=== PATIENT | female | born 1985 | race Caucasian/White ===

== ENCOUNTER 2018-05-22 15:48 | Inpatient (IN) | payer OTHER ==
[2018-05-22 16:27] LABS: Bilirubin Negative (Negative); Blood, Urine Negative (Negative); Clarity Clear (Clear); Glucose, Urine (Dipstick) Negative (Negative); Leukocyte Trace (Negative); Nitrite Negative (Negative); Protein, Urine (Dipstick) Negative (Neg-Trace); Specific Gravity, Urine 1.015 (1.005-1.030); Urobilinogen 0.2 mg/dL (0.2-1.0); pH, Urine 6.5 (5.0-9.0)
[2018-05-22 16:30] LABS: Pregu Control Background? CLEAR/WHITE (CLR/WHITE); Pregu Control Bar Appear? YES (CONTROL BAR)
[2018-05-22 16:31] LABS: Bacteria/HPF 1+ HPF (None Seen); RBC/HPF 0-3 HPF (0-3); WBC/HPF 0-3 HPF (0-3)
[2018-05-22 16:32] LABS: Pregnancy Test - Urine (BHCG) Negative (Negative); Specific Gravity 1.015 (1.002-1.036)
[2018-05-22] MEDS ORDERED: Ondansetron HCl/PF 4 MG/2 ML Vial ONE (16:32)
[2018-05-22] MEDS ORDERED: Morphine 4 MG/ML VIAL ONE (16:49)
[2018-05-22 17:11] LABS: #Basophils 0.1 thou/uL (0.0-0.2); #Lymphocytes 2.9 thou/uL (1.20-3.40); #Monocytes 0.5 thou/uL (0.11-0.59); #Neutrophils 6.7 thou/uL (1.40-6.50); %Basophils 0.9 % (0.0-1.0); %Eosinophils 0.4 % (0.0-10.0); %Lymphocytes 28.3 % (21.0-51.0); %Neutrophils 65.4 % (42.0-75.0); Hemoglobin 13.1 g/dL (12.0-16.0); Mean Corpuscular HGB CONC 34.7 g/dL (32.0-36.0); Mean Corpuscular Hemoglobin 30.3 pg (27.0-31.0); Mean Corpuscular Volume 87.3 fL (78.0-98.0); Mean Platelet Volume 7.3 fL (7.4-10.4); Platelet Count 212 thou/uL (130-400); RBC Distribution Width 10.5 % (11.5-14.5); Red Blood Cell (RBC) Count 4.32 mill/uL (4.20-5.40); White Blood Cell (WBC) Count 10.3 thou/uL (4.8-10.8)
--- NOTE | 2018-05-22 17:11 | ULT ---
RIGHT UPPER QUADRANT ULTRASOUND: HISTORY: Right upper quadrant pain. The patient had an ultrasound of the leg, which showed gallstones. The p atient has increased pain today. FINDINGS: The left lobe of the liver, the pancreas, and the common bile duct are not visualized. The right lob e of the liver and right kidney appear normal. There are multiple gallstones with gallbladder wall t hickening (4.1 mm). No pericholecystic fluid is seen. One of the calculi in the gallbladder is in t he neck and shows normal no mobility. The other calculi demonstrate mobility. No free fluid is seen in the Dill pouch. IMPRESSION: Cholelithiasis with gallbladder wall thickening. Impacted gallstone is seen at the neck of the gallb ladder. POS: [facility]
[2018-05-22] MEDS ORDERED: Fentanyl 100 MCG/2 ML VIAL ONE ×3 (17:18→22:00)
[2018-05-22 17:23] LABS: ALT (SGPT) 21 U/L (8-55); AST (SGOT) 18 U/L (5-34); Alkaline Phosphatase 57 U/L (40-150); Anion Gap 10 mmol/L (10-20); BUN (Urea Nitrogen) 7 mg/dL (7.0-18.7); Bilirubin, Total 0.7 mg/dL (0.2-1.2); Calc. Creatinine Clearance 0 mL/min (70-130); Calcium 8.9 mg/dL (7.8-10.44); Carbon Dioxide 25 mmol/L (22-29); Chloride 108 mmol/L (98-107); Estimated GFR-MDRD Greater than 90; Globulin 2.8 g/dL (2.4-3.5); Glucose 109 mg/dL (70-105); Lipase 33 U/L (8-78); Potassium 3.2 mmol/L (3.5-5.1); Protein, Total 6.8 g/dL (6.0-8.3); Sodium 140 mmol/L (136-145)
[2018-05-22] MEDS ORDERED: Promethazine HCl 25 MG/ML VIAL ONE (18:03)
[2018-05-22] MEDS ORDERED: Piperacillin/Tazobactam 4.5 GM VIAL ONE (18:18)
[2018-05-22] MEDS ORDERED: Sodium Chloride 0.9% 100 ML ONE (18:19)
[2018-05-22] MEDS ORDERED: HYDROcodone/Acetaminophen 5/325 mg Tablet PO PRN ×2 (22:45)
[2018-05-22] MEDS ORDERED: Ondansetron ODT 4 MG TAB SL PRN (22:45)
[2018-05-22] MEDS ORDERED: Ondansetron HCl/PF 4 MG/2 ML Vial IVP PRN (22:45)
[2018-05-22] MEDS: Piperacillin/Tazobactam 4.5 GM in Sodium Chloride 0.9% 100 ML IVPB SCH (23:34)
[2018-05-22] MEDS: Sodium Chloride 0.9% 1,000 ML IV SCH (23:34)
[2018-05-22] MEDS: Fentanyl 100 MCG/2 ML VIAL SLOW IVP PRN (23:35)
[2018-05-23] MEDS: Fentanyl 100 MCG/2 ML VIAL SLOW IVP PRN ×3 (02:31→08:39)
[2018-05-23] MEDS: Piperacillin/Tazobactam 4.5 GM in Sodium Chloride 0.9% 100 ML IVPB SCH (05:47)
[2018-05-23] MEDS ORDERED: cefOXitin 2 GM in Sodium Chloride 0.9% 100 ML IVPB SCH (07:30)
--- NOTE | 2018-05-23 07:40 | HP ---
CHIEF COMPLAINT: Right upper quadrant abdominal pain. HISTORY OF PRESENT ILLNESS: A 33-year-old female who has been having some right upper quadrant pain since Sunday, it became much worse yesterday. It is described as radiating to the back, associated w ith nausea, vomiting, diarrhea. Denies dark urine. Last meal was 2:00 p.m. PAST MEDICAL HISTORY: Mitral valve prolapse. PAST SURGICAL HISTORY: None. MEDICATIONS: She is on Keflex for a UTI. ALLERGIES: No known drug allergies. SOCIAL HISTORY: She is . 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 No tobacco, social alco hol. FAMILY HISTORY: Hypothyroidism and coronary artery disease. Mother had a stent. PHYSICAL EXAMINATION: VITAL SIGNS: Temperature 98.2, pulse is 81, blood pressure 110/74. GENERAL: She is awake, alert, in minimal distress. HEENT: No jaundice. LUNGS: Clear. HEART: Regular rate and rhythm. ABDOMEN: Soft, tender in the right upper quadrant, no palpable masses. EXTREMITIES: Unremarkable. LABORATORY AND X-RAY FINDINGS: White count 10.3, H&H of 13 and 37, platelet count 212. Electrolytes are fine. Liver function tests normal. Ultrasound shows an impacted gallstone in the neck of the g allbladder with thickening of the gallbladder wall. ASSESSMENT: Early acute cholecystitis. PLAN: Laparoscopic cholecystectomy. CONSENT: I discussed the planned procedure as well as risk of bleeding, infection, injury to bile du ct, injury to bowel, need to open. She understands and gives informed consent.
[2018-05-23] MEDS: Sodium Chloride 0.9% 1,000 ML IV SCH (08:44)
[2018-05-23] MEDS ORDERED: Bupivacaine/Epinephrine 0.25% 30 ML VIAL ONE (10:58)
[2018-05-23] MEDS ORDERED: Midazolam HCl 2 mg/2 ml Vial ONE ×2 (11:14→11:15)
[2018-05-23] MEDS ORDERED: Fentanyl 100 MCG/2 ML VIAL ONE (11:15)
[2018-05-23] MEDS ORDERED: HYDROmorphone 2 MG/ML VIAL ONE ×2 (11:16→13:20)
[2018-05-23] MEDS ORDERED: Mag-Al 1200 mg/1200 mg/30 ML UDCUP PO PRN (12:29)
[2018-05-23] MEDS ORDERED: Ondansetron HCl/PF 4 MG/2 ML Vial IVP PRN (12:29)
[2018-05-23] MEDS ORDERED: Dextrose 5% in Water 1,000 ML IV PRN (12:29)
[2018-05-23] MEDS ORDERED: Dextrose 50% Abboject 50 ML SYRINGE SLOW IVP PRN (12:29)
[2018-05-23] MEDS ORDERED: Morphine 4 MG/ML Carpuject SLOW IVP PRN (12:29)
[2018-05-23] MEDS ORDERED: Calcium Carbonate 500 MG ChewTAB PO PRN (12:29)
[2018-05-23] MEDS ORDERED: hydrALAZINE 20 MG/ML VIAL SLOW IVP PRN (12:29)
[2018-05-23] MEDS ORDERED: Promethazine HCl 25 MG/ML VIAL IM PRN (12:29)
[2018-05-23] MEDS ORDERED: HYDROcodone/Acetaminophen 10/325 mg Tablet PO PRN (12:29)
[2018-05-23] MEDS ORDERED: Promethazine HCl 25 MG/ML VIAL ONE (13:09)
--- NOTE | 2018-05-23 13:11 | OP ---
PREOPERATIVE DIAGNOSIS: Acute cholecystitis. SURGEON: Bradly Mcintosh M.D. PROCEDURE PERFORMED: Laparoscopic cholecystectomy, excision of irregular nevus subxiphoid. INDICATIONS: This is a 33-year-old female who presented with severe right upper quadrant pain radiat ing to the back associated with nausea. Ultrasound showed thickened gallbladder wall with an impacte d gallstone in the neck of the gallbladder. She also had this very suspicious nevus subxiphoid with irregular borders and irregular colors. FINDINGS: She had some thickening of the gallbladder wall, which was distended. She had a very smal l caliber cystic duct. There was history of irregular nevus. DESCRIPTION OF PROCEDURE: After informed consent was obtained, the patient was taken to the operatin g room and given general endotracheal anesthesia. She was placed in the supine position. Her abdome n was prepped and draped in usual fashion. On close exam of her abdominal wall, there was very suspi cious appearing nevus just subxiphoid. Local anesthesia was infiltrated subcutaneously and deep, and this was excised and sent to pathology for further analysis. Umbilical incision was performed. The subcu divided sharply. Fascia grasped and two stay sutures of 0 Vicryl placed on either side of mid line. Midline incised. Digital palpation revealed no local adhesions. A blunt 10/12 mm trocar inse rted. Pneumoperitoneum was created to a pressure of 15 mmHg. Zero degree laparoscope was inserted u nder direct vision, three 5-mm ports were placed, one through the excision site and then two other vazquez bxiphoid. Now, the subsequent 3 incisions were made with a separate blade. The patient was placed i n a reverse Trendelenburg position. The gallbladder grasped and advanced superiorly. The peritoneum was lysed distally to expose the cystic duct, artery and critical view. Cystic duct was triply liga oliverio with Hemoclips and divided. The artery triply ligated with Hemoclips and divided. The gallbladd er was removed from its fossa utilizing electrocautery, removed from the abdomen through the umbilica l port. Hemostasis was assured. Trocars and retractors removed. The fascia closed with interrupted 2-0 Vicryl suture. The skin closed with interrupted 4-0 Rapide. Dermabond applied. The patient to lerated the procedure well and was transferred to recovery in good condition. Sponge and needle coun t verified correct x2.
[2018-05-23] MEDS: D5 1/2 NS w/20 mEq KCL 1,000 ML IV SCH ×3 (14:59→23:13)
[2018-05-23] MEDS: Ketorolac Tromethamine 30 MG/ML VIAL IVP SCH (17:55)
[2018-05-23] MEDS: Morphine 4 MG/ML VIAL IV PRN ×2 (17:58→20:18)
[2018-05-23] MEDS: Famotidine 20 MG TAB PO SCH (20:18)
[2018-05-23] MEDS: Docusate 100 MG CAP PO SCH (20:18)
[2018-05-23] MEDS: Famotidine/PF 20 mg/2ml Vial SLOW IVP SCH (21:34)
[2018-05-24] MEDS: Ketorolac Tromethamine 30 MG/ML VIAL IVP SCH ×3 (00:04→12:52)
[2018-05-24] MEDS: HYDROcodone/Acetaminophen 10/325 mg Tablet PO PRN ×3 (01:02→10:43)
[2018-05-24 05:09] LABS: #Monocytes 0.3 thou/uL (0.11-0.59); #Neutrophils 10.7 thou/uL (1.40-6.50); %Eosinophils 0.1 % (0.0-10.0); %Lymphocytes 8.3 % (21.0-51.0); %Monocytes 2.3 % (0.0-10.0); %Neutrophils 89.3 % (42.0-75.0); Hemoglobin 12.3 g/dL (12.0-16.0); Mean Corpuscular HGB CONC 34.1 g/dL (32.0-36.0); Mean Corpuscular Hemoglobin 31.2 pg (27.0-31.0); Mean Corpuscular Volume 91.6 fL (78.0-98.0); Mean Platelet Volume 7.5 fL (7.4-10.4); Platelet Count 231 thou/uL (130-400); RBC Distribution Width 11.4 % (11.5-14.5); Red Blood Cell (RBC) Count 3.95 mill/uL (4.20-5.40)
[2018-05-24 05:18] LABS: ALT (SGPT) 36 U/L (8-55); AST (SGOT) 38 U/L (5-34); Albumin 3.7 g/dL (3.5-5.0); Alkaline Phosphatase 62 U/L (40-150); Anion Gap 9 mmol/L (10-20); BUN (Urea Nitrogen) 6 mg/dL (7.0-18.7); Bilirubin, Total 0.9 mg/dL (0.2-1.2); Calc. Creatinine Clearance 0 mL/min (70-130); Calcium 8.4 mg/dL (7.8-10.44); Carbon Dioxide 22 mmol/L (22-29); Chloride 107 mmol/L (98-107); Estimated GFR-MDRD Greater than 90; Globulin 2.7 g/dL (2.4-3.5); Glucose 168 mg/dL (70-105); Lipase 21 U/L (8-78); Potassium 4.1 mmol/L (3.5-5.1); Protein, Total 6.4 g/dL (6.0-8.3); Sodium 134 mmol/L (136-145)
[2018-05-24] MEDS: D5 1/2 NS w/20 mEq KCL 1,000 ML IV SCH ×2 (06:36→08:38)
[2018-05-24] MEDS: Famotidine/PF 20 mg/2ml Vial SLOW IVP SCH ×2 (08:39→08:43)
[2018-05-24] MEDS: Famotidine 20 MG TAB PO SCH (08:39)
[2018-05-24] MEDS: Docusate 100 MG CAP PO SCH (08:39)
[2018-05-24] MEDS ORDERED: Enoxaparin Sodium 40 MG/0.4 ML SYRINGE SC SCH (09:00)
[2018-05-24 11:27] VITALS: BP 130/81; TEMP 97.8
--- NOTE | 2018-05-24 14:27 | DIS ---
DISCHARGE DIAGNOSIS: Acute cholecystitis. PROCEDURES DURING ADMISSION: Laparoscopic cholecystectomy. HOSPITAL COURSE: The patient was admitted, given IV fluids, IV antibiotics, taken to the operating r oom where she underwent a laparoscopic cholecystectomy. Postoperatively, she has done well. Pain is controlled on p.o. meds. She is tolerating liquids well. She is discharged home on hydrocodone and Zofran. She will follow up with me in 2 weeks.
== END 2018-05-24 16:43 | disposition home or self-care (01) | DRG 419 ==
LOC: SCSER 15:48 → SJJU 22:39
PROVIDERS: ADMIT Surgery; ATTEND Surgery
PROC: 0FT44ZZ Resection of Gallbladder, Percutaneous Endoscopic Approach (ICD-10-PCS; principal; 2018-05-22)
PROC: 0HB7XZZ Excision of Abdomen Skin, External Approach (ICD-10-PCS; 2018-05-22)
DX: K81.0 Acute cholecystitis (principal); D22.5 Melanocytic nevi of trunk; I34.1 Nonrheumatic mitral (valve) prolapse; Z79.2 Long term (current) use of antibiotics
CPT/HCPCS: 36415; 76705; 80053; 81003; 81015; 81025; 83690; 85025; 88304; 88305; 96361; 96365; 96375; 96376; A4216; J0131; J0694; J1170; J1885; J2250; J2270; J2405; J2543; J2550; J3010; J7050

== ENCOUNTER 2018-05-25 07:58 | Inpatient (IN) | payer OTHER ==
[2018-05-25] MEDS ORDERED: Fentanyl 100 MCG/2 ML VIAL ONE (08:25)
[2018-05-25 08:43] LABS: #Monocytes 0.8 thou/uL (0.11-0.59); #Neutrophils 9.6 thou/uL (1.40-6.50); %Basophils 0.3 % (0.0-1.0); %Eosinophils 0.4 % (0.0-10.0); %Lymphocytes 16.2 % (21.0-51.0); %Monocytes 6.5 % (0.0-10.0); %Neutrophils 76.5 % (42.0-75.0); Hemoglobin 12.8 g/dL (12.0-16.0); Mean Corpuscular HGB CONC 33.8 g/dL (32.0-36.0); Mean Corpuscular Hemoglobin 31.4 pg (27.0-31.0); Mean Corpuscular Volume 92.7 fL (78.0-98.0); Mean Platelet Volume 7.5 fL (7.4-10.4); Platelet Count 215 thou/uL (130-400); RBC Distribution Width 11.6 % (11.5-14.5); Red Blood Cell (RBC) Count 4.08 mill/uL (4.20-5.40); White Blood Cell (WBC) Count 12.5 thou/uL (4.8-10.8)
--- NOTE | 2018-05-25 08:46 | RAD ---
CHEST 1 VIEW: Date: 05/25/18 HISTORY: Status post cholecystectomy. Nausea. COMPARISON: None. FINDINGS: Normal cardiac silhouette. Pulmonary vessels and hilum are normal. Costophrenic angles are clear. Rishi g volumes are diminished, likely due to poor inspiratory effort. No consolidation or mass. No pneumot horax or osseous abnormalities. IMPRESSION: No acute cardiopulmonary process. POS: [facility]
[2018-05-25 08:52] LABS: BHCG - Serum Negative (NEGATIVE); Pregs Control Background? CLEAR/WHITE (CLR/WHITE); Pregs Control Bar Appear? YES (CONTROL BAR)
[2018-05-25 09:08] LABS: ALT (SGPT) 90 U/L (8-55); AST (SGOT) 85 U/L (5-34); Alkaline Phosphatase 75 U/L (40-150); Anion Gap 9 mmol/L (10-20); BUN (Urea Nitrogen) 12 mg/dL (7.0-18.7); Bilirubin, Total 1.3 mg/dL (0.2-1.2); Calc. Creatinine Clearance 0 mL/min (70-130); Calcium 8.5 mg/dL (7.8-10.44); Carbon Dioxide 26 mmol/L (22-29); Chloride 105 mmol/L (98-107); Estimated GFR-MDRD Greater than 90; Globulin 2.8 g/dL (2.4-3.5); Glucose 97 mg/dL (70-105); Lipase 27 U/L (8-78); Potassium 3.4 mmol/L (3.5-5.1); Protein, Total 6.8 g/dL (6.0-8.3); Sodium 137 mmol/L (136-145)
[2018-05-25] MEDS ORDERED: HYDROmorphone 0.5 MG/0.5 ML SYRINGE ONE (09:33)
[2018-05-25 09:49] LABS: Bilirubin Negative (Negative); Blood, Urine Negative (Negative); Clarity CLEAR (Clear); Glucose, Urine (Dipstick) Negative (Negative); Leukocyte Negative (Negative); Nitrite Negative (Negative); Protein, Urine (Dipstick) Negative (Neg-Trace); Urobilinogen 0.2 mg/dL (0.2-1.0)
--- NOTE | 2018-05-25 09:49 | CT ---
CT ABDOMEN AND PELVIS WITH IV CONTRAST: Date: 05/25/18 PROVIDED CLINICAL HISTORY: Abdominal pain. Status post cholecystectomy. FINDINGS: The visualized lung bases are free of significant opacity. The liver, spleen, pancreas, kidneys, and adrenal glands demonstrate an unremarkable CT appearance. Changes of prior cholecystectomy are seen. There is mild free intraperitoneal fluid predominantly abo ut the right hepatic margin and within the pelvic cul-de-sac. The Hounsfield units of this fluid is s imple fluid. There is no bowel dilatation, inflammatory fat stranding, or free air apparent. The osseous structures demonstrate no concerning lytic or blastic lesions. Surgical clips presumably reflecting tubal ligation clips are seen in the right hemipelvis. The appendix appears normal. IMPRESSION: Mild free intraperitoneal fluid, which may be on the basis of recent surgery. If there is concern for bile leak, consider HIDA scan. POS: [facility]
[2018-05-25 09:51] LABS: Specific Gravity, Urine 1.048 (1.002-1.036)
[2018-05-25] MEDS ORDERED: Simethicone Chewable 80 MG TAB PO SCH (10:15)
[2018-05-25] MEDS ORDERED: Polyethylene Glycol 3350 17 GM Packet PO SCH (10:15)
[2018-05-25] MEDS ORDERED: diphenhydrAMINE 50 MG/ML VIAL ONE (10:42)
[2018-05-25] MEDS ORDERED: Metoclopramide HCl 10 MG/2 ML VIAL ONE (10:42)
[2018-05-25] MEDS ORDERED: Ketorolac Tromethamine 30 MG/ML VIAL ONE (12:38)
[2018-05-25 14:13] VITALS: BMI 32.3
[2018-05-25] MEDS ORDERED: Ketorolac Tromethamine 30 MG/ML VIAL IVP PRN (14:25)
[2018-05-25] MEDS ORDERED: Ondansetron HCl/PF 4 MG/2 ML Vial IVP PRN ×2 (14:26→14:45)
[2018-05-25] MEDS ORDERED: Acetaminophen 325 MG TAB PO PRN (14:26)
[2018-05-25] MEDS ORDERED: Ondansetron ODT 4 MG TAB SL PRN (14:26)
[2018-05-25] MEDS ORDERED: Lactated Ringer's 1,000 ML IV SCH (14:30)
[2018-05-25] MEDS ORDERED: ISOVUE-370 76%-LOCM 1 ML ONE (14:30)
[2018-05-25] MEDS ORDERED: Dextrose 5% in Water 1,000 ML IV PRN (14:45)
[2018-05-25] MEDS ORDERED: hydrALAZINE 20 MG/ML VIAL SLOW IVP PRN (14:45)
[2018-05-25] MEDS ORDERED: Mag-Al 1200 mg/1200 mg/30 ML UDCUP PO PRN (14:45)
[2018-05-25] MEDS ORDERED: Promethazine HCl 25 MG/ML VIAL IM PRN (14:45)
[2018-05-25] MEDS ORDERED: HYDROcodone/Acetaminophen 10/325 mg Tablet PO PRN ×2 (14:45)
[2018-05-25] MEDS ORDERED: Calcium Carbonate 500 MG ChewTAB PO PRN (14:45)
[2018-05-25] MEDS ORDERED: Dextrose 50% Abboject 50 ML SYRINGE SLOW IVP PRN (14:45)
[2018-05-25] MEDS: D5 1/2 NS w/20 mEq KCL 1,000 ML IV SCH ×2 (15:01→22:26)
--- NOTE | 2018-05-25 15:01 | HP ---
DATE OF ADMISSION: 05/25/2018 CHIEF COMPLAINT: Intractable right upper quadrant pain. HISTORY OF PRESENT ILLNESS: This is a 33-year-old female who has a history of laparoscopic cholecyst ectomy with Dr. Mcintosh on 05/23/2018 for acute cholecystitis. She had normal liver function test befo re surgery. She now presents with intractable right upper quadrant pain. She points to the subcosta l area at her middle upper abdominal incision. She says it feels like a "Charley horse." This was a ssociated with nausea, no vomiting. She feels bloated as well, not passing much gas. She has not webb d a bowel movement since surgery. Medical history, surgical history, medicines, allergies, please see previous H and P. PHYSICAL EXAMINATION: VITAL SIGNS: Blood pressure 117/75, pulse 73, respirations 16, afebrile. HEENT: Sclerae are anicteric. Oropharynx clear. NECK: No lymphadenopathy. CHEST: Clear. HEART: Regular rate and rhythm. ABDOMEN: Soft, she has very little point tender in the area of the upper middle 5-mm port site. She has mild bruising around all incisions in the umbilicus as well. There is no infection. There is n o guarding or rebound. EXTREMITIES: No ischemia or edema to extremities. LABORATORY DATA: White cell count is 12, hemoglobin 12, platelet count is 215. Sodium 137, potassiu m 3.4, creatinine 0.71, bilirubin 1.3, AST, ALT are 85 and 90, alkaline phosphatase normal at 75. Li pase normal at 27. LABORATORY AND X-RAY FINDINGS: CT scan shows normal postoperative findings There is a small amount i ntraperitoneal fluid, right hepatic margin which is what would be expected immediately postop. ASSESSMENT: Intractable right upper quadrant pain after laparoscopic cholecystectomy, now with mild transaminase elevation. PLAN: Admit for pain control, repeat liver tests tomorrow. If still elevated and pain not resolve, we will check HIDA scan to rule out subtle bile leak.
[2018-05-25] MEDS: Morphine 4 MG/ML VIAL SLOW IVP PRN ×3 (17:02→22:26)
[2018-05-25] MEDS: Famotidine/PF 20 mg/2ml Vial SLOW IVP SCH (21:06)
[2018-05-25] MEDS: Ketorolac Tromethamine 30 MG/ML VIAL IVP PRN (21:06)
[2018-05-25] MEDS: Docusate 100 MG CAP PO SCH (22:19)
[2018-05-25] MEDS: Famotidine 20 MG TAB PO SCH (22:20)
[2018-05-26] MEDS: Morphine 4 MG/ML VIAL SLOW IVP PRN ×5 (00:16→08:53)
[2018-05-26] MEDS: Ketorolac Tromethamine 30 MG/ML VIAL IVP PRN ×3 (03:20→16:06)
[2018-05-26 04:57] LABS: #Basophils 0.1 thou/uL (0.0-0.2); #Eosinphils 0.2 thou/uL (0.0-0.7); #Lymphocytes 2.4 thou/uL (1.20-3.40); #Neutrophils 5.2 thou/uL (1.40-6.50); %Basophils 0.6 % (0.0-1.0); %Eosinophils 1.9 % (0.0-10.0); %Lymphocytes 27.2 % (21.0-51.0); %Monocytes 10.8 % (0.0-10.0); %Neutrophils 59.5 % (42.0-75.0); Hemoglobin 11.6 g/dL (12.0-16.0); Mean Corpuscular HGB CONC 34.1 g/dL (32.0-36.0); Mean Corpuscular Hemoglobin 31.5 pg (27.0-31.0); Mean Corpuscular Volume 92.4 fL (78.0-98.0); Mean Platelet Volume 7.3 fL (7.4-10.4); Platelet Count 213 thou/uL (130-400); RBC Distribution Width 11.6 % (11.5-14.5); White Blood Cell (WBC) Count 8.8 thou/uL (4.8-10.8)
[2018-05-26 05:14] LABS: ALT (SGPT) 75 U/L (8-55); AST (SGOT) 52 U/L (5-34); Albumin 3.5 g/dL (3.5-5.0); Alkaline Phosphatase 95 U/L (40-150); Anion Gap 10 mmol/L (10-20); BUN (Urea Nitrogen) 5 mg/dL (7.0-18.7); Bilirubin, Total 2.2 mg/dL (0.2-1.2); Calc. Creatinine Clearance 70 mL/min (70-130); Calcium 8.1 mg/dL (7.8-10.44); Carbon Dioxide 24 mmol/L (22-29); Chloride 106 mmol/L (98-107); Estimated GFR-MDRD Greater than 90; Globulin 2.5 g/dL (2.4-3.5); Glucose 97 mg/dL (70-105); Potassium 3.3 mmol/L (3.5-5.1); Sodium 137 mmol/L (136-145)
[2018-05-26] MEDS: D5 1/2 NS w/20 mEq KCL 1,000 ML IV SCH ×3 (06:20→21:39)
[2018-05-26] MEDS: Famotidine/PF 20 mg/2ml Vial SLOW IVP SCH ×2 (08:54→22:27)
[2018-05-26] MEDS: Docusate 100 MG CAP PO SCH ×2 (08:54→21:20)
[2018-05-26] MEDS: Famotidine 20 MG TAB PO SCH ×2 (08:54→21:20)
--- NOTE | 2018-05-26 09:10 | PDOC.GSPN ---
Surgery Progress Note: Subj - Subjective Narrative: Still c/o severe pain. No improvement Surgery Progress Note: Obj - Vital signs Vital signs: Vital Signs - Most Recent Temp Pulse Resp BP Pulse Ox 98.2 F 94 16 126/83 92 L 05/26/18 07:33 05/26/18 07:33 05/26/18 07:33 05/26/18 07:33 05/26/18 07:33 - Physical Exam General: no distress Cardiovascular: regular rate and rhythm Respiratory: clear to auscultation Abdomen: soft (tender right upper quadrant) Surgery Progress Note: Results - Labs Result Diagrams: 05/26/18 04:11 05/26/18 04:11 Lab results: Laboratory Results - last 24 hr 05/26/18 05/26/18 04:11 04:11 WBC 8.8 RBC 3.70 L Hgb 11.6 L Hct 34.2 L MCV 92.4 MCH 31.5 H MCHC 34.1 RDW 11.6 Plt Count 213 MPV 7.3 L Neutrophils % 59.5 Lymphocytes % 27.2 Monocytes % 10.8 H Eosinophils % 1.9 Basophils % 0.6 Neutrophils # 5.2 Lymphocytes # 2.4 Monocytes # 1.0 H Eosinophils # 0.2 Basophils # 0.1 Sodium 137 Potassium 3.3 L Chloride 106 Carbon Dioxide 24 Anion Gap 10 BUN 5 L Creatinine 0.65 Estimated GFR (MDRD) Greater than 90 Glucose 97 Calcium 8.1 Total Bilirubin 2.2 H AST 52 H ALT 75 H Alkaline Phosphatase 95 Serum Total Protein 6.0 Albumin 3.5 Globulin 2.5 Albumin/Globulin Ratio 1.4 Surgery Progress Note: A/P - Problem (1) Right upper quadrant abdominal pain Current Visit: Yes Code(s): R10.11 - RIGHT UPPER QUADRANT PAIN Status: Acute - Plan Plan: R/O bile leak -HIDA ordered for today -DOPE POURER for pain control
[2018-05-26] MEDS ORDERED: diphenhydrAMINE 50 MG/ML VIAL IM PRN (11:03)
[2018-05-26] MEDS ORDERED: Naloxone HCl 0.4 mg/ml Vial IV PRN (11:03)
[2018-05-26] MEDS ORDERED: Ondansetron HCl/PF 4 MG/2 ML Vial IVP PRN (11:03)
[2018-05-26] MEDS ORDERED: diphenhydrAMINE 25 MG CAP PO PRN (11:03)
[2018-05-26] MEDS ORDERED: Promethazine HCl 25 MG/ML VIAL IM PRN (11:03)
[2018-05-26] MEDS ORDERED: Morphine CADD 1 MG/ML CADD IVPB PRN (11:03)
[2018-05-26] MEDS ORDERED: Zolpidem Tartrate 5 MG TAB PO PRN (11:03)
[2018-05-26] MEDS ORDERED: Communication Order-Pharmacy FS SCH (11:15)
--- NOTE | 2018-05-26 13:17 | NM ---
HEPATOBILIARY SCAN: DATE 04/18/16. PROVIDED CLINICAL HISTORY: Abdominal pain and elevated LFTs status post laparoscopic cholecystectomy. FINDINGS: Comparison is made with the CT examination performed 05/25/18. A4.5 mCi of Technetium 99m labeled meb rofenin was given intravenously. There is appropriate hepatic uptake of radiotracer. There is excre tion into the biliary system. There is radiotracer noted at the expected location of the gallbladder fossa and along the right paracolic gutter and extending into the pelvis, compatible with bile leak. IMPRESSION: Findings compatible with bile leak. POS: [facility]
[2018-05-26] MEDS: diphenhydrAMINE 50 MG/ML VIAL IVP PRN ×2 (14:13→21:38)
--- NOTE | 2018-05-26 18:00 | CON ---
DATE OF CONSULTATION: 05/26/2018 GASTROINTESTINAL INPATIENT CONSULTATION NOTE REQUESTING PHYSICIAN: Dr. Thornton. REASON FOR CONSULTATION: Bile leak. HISTORY OF PRESENT ILLNESS: Lianne Fountain is a very pleasant 33-year-old woman who underwent lapar oscopic cholecystectomy with Dr. Mcintosh 3 days ago on 05/23/2018 for acute cholecystitis. She had had some stuttering biliary symptoms over the past year or two prior to this. Notably, she had normal l iver function test prior to surgery. Postoperatively, the patient really did not have significant im provement in abdominal pain. She feels pain primarily in the right upper quadrant which is fairly co nstant but comes in exacerbations lasting 20-30 minutes like a squeezing sensation. There is some as sociated nausea, but no vomiting. She feels bloated and has a little bit of abdominal distention. S he has not had any good bowel movements since her surgery. Upon presentation yesterday, she was foun d to have some mild new LFT elevation with total bilirubin up to 1.3 and now this morning it has gone up further to 2.2. Her lipase is normal. She had an abdominal CT yesterday which demonstrated some mild free intraperitoneal fluid, predominantly around the right hepatic margin and within the pelvic cul-de-sac. The CT was otherwise unremarkable. Due to concern for bile leak, she had a HIDA scan e mc today and this does demonstrate radiotracer noted within the gallbladder fossa and along the r ight pericolic gutter extending into the pelvis, compatible with bile leak. The patient is currently doing okay. Pain is fairly well controlled with morphine. REVIEW OF SYSTEMS: Full review of systems including constitutional, head, eyes, ears, nose, throat, GI, , cardiovascular, respiratory, musculoskeletal, and neurologic systems is negative except as no oliverio in the HPI. PAST MEDICAL HISTORY: Mitral valve prolapse, cholecystectomy on 05/23/2018. ALLERGIES: No known drug allergies. MEDICATIONS: Currently receiving Benadryl p.r.n., Colace b.i.d., Pepcid 20 mg IV q.12 hours, Toradol p.r.n., morphine p.r.n., Zofran p.r.n. SOCIAL HISTORY: She is . No tobacco or social alcohol use. FAMILY HISTORY: Noncontributory. PHYSICAL EXAMINATION: VITAL SIGNS: Temperature 98.3, pulse 95, blood pressure 121/83, 91% oxygen saturation on room air. GENERAL: A 33-year-old woman lying in bed fairly comfortably in no acute distress. SKIN: No jaundice, no rash visible or palpable. EYES: No scleral icterus. Extraocular movements intact. ENT: Mucous membranes moist, no oral lesions. LYMPH: No submandibular, supraclavicular lymphadenopathy. THYROID: Nontender to palpation. HEART: Regular rate and rhythm. LUNGS: Clear to auscultation bilaterally. ABDOMEN: Mild distention. Bowel sounds are present but hypoactive. The abdomen is soft. She is te nder to palpation primarily in the right upper quadrant, but diffusely to a lesser degree. No guardi ng, rebound tenderness. EXTREMITIES: No peripheral edema. VESSELS: Radial pulses 2+ bilaterally. NEUROLOGICAL: Cranial nerves II-XII intact bilaterally. No focal deficits. LABORATORY STUDIES: WBC 8.8, hemoglobin 11.6, platelets 213. Sodium 137, potassium 3.3, BUN 5, crea tinine 0.65. Total bilirubin up to 2.2, alkaline phosphatase 95, AST 52, ALT 75, albumin 3.5. Serum test negative. Urinalysis negative. IMAGING STUDIES: CT of the abdomen and pelvis demonstrates some free intraperitoneal fluid around th e hepatic margin and extending into the right pericolic gutter. CT was otherwise unremarkable. HIDA scan performed earlier today demonstrated a radiotracer pooling in the expected location of the gall bladder fossa and a right and along the right pericolic gutter extending into the pelvis compatible w ith bile leak. ASSESSMENT AND PLAN: 1. Bile leak, postoperative. 2. Elevated liver function tests. I discussed with the patient that her imaging and lab findings as well as presentation are all consistent with postoperative bile leak. This may be coming from the c ystic duct stump. I think the patient would benefit from ERCP with biliary stent placement across th e ampulla. I discussed the procedure in detail with the patient including the benefits but also the risks of the procedure including post-ERCP pancreatitis. The patient desires to proceed. We will pl an for ERCP tomorrow morning. Thank you for the consultation. Please call any time with questions or concerns.
[2018-05-26] MEDS ORDERED: fentaNYL Citrate/PF 2,000 MCG in Sodium Chloride 0.9% 60 ML IV PRN (20:27)
[2018-05-27] MEDS: D5 1/2 NS w/20 mEq KCL 1,000 ML IV SCH ×3 (05:42→20:40)
[2018-05-27] MEDS ORDERED: Fentanyl 100 MCG/2 ML VIAL ONE ×3 (08:04→10:46)
[2018-05-27] MEDS ORDERED: CEFAZOLIN/Water 2 GM/20 ML SYRINGE ONE (08:26)
[2018-05-27] MEDS: Famotidine/PF 20 mg/2ml Vial SLOW IVP SCH ×2 (08:47→20:46)
[2018-05-27] MEDS: Famotidine 20 MG TAB PO SCH ×2 (08:47→20:00)
[2018-05-27] MEDS: Docusate 100 MG CAP PO SCH ×2 (08:47→20:00)
[2018-05-27] MEDS ORDERED: Indomethacin 50 MG SUPP ONE (08:51)
[2018-05-27] MEDS ORDERED: Iothalamate Meglumine 60% 50 ML VIAL FS ONE (08:51)
[2018-05-27] MEDS ORDERED: Midazolam HCl 2 mg/2 ml Vial ONE (08:55)
[2018-05-27] MEDS ORDERED: Lidocaine 2% Jelly 5 ML TUBE ONE (08:55)
[2018-05-27] MEDS ORDERED: Promethazine HCl 25 MG/ML VIAL IM PRN ×2 (10:40)
[2018-05-27] MEDS ORDERED: Promethazine HCl 25 MG/ML VIAL SLOW IVP PRN ×2 (10:40)
[2018-05-27] MEDS ORDERED: HYDROmorphone 2 MG/ML VIAL SLOW IVP PRN (10:40)
[2018-05-27] MEDS ORDERED: Ondansetron HCl/PF 4 MG/2 ML Vial IVP PRN ×2 (10:40)
[2018-05-27] MEDS ORDERED: Promethazine HCl 25 MG/ML VIAL ONE ×2 (10:46→10:49)
[2018-05-27] MEDS ORDERED: PROPOFOL 200 MG/20 ML VIAL ONE (13:15)
[2018-05-27] MEDS ORDERED: Dexamethasone 20 MG/5 ML VIAL ONE (13:15)
[2018-05-27] MEDS ORDERED: Ondansetron HCl/PF 4 MG/2 ML Vial ONE (13:15)
[2018-05-27] MEDS ORDERED: Succinylcholine Chloride 20 MG/ML 10 ml SYRINGE FS ONE (13:15)
[2018-05-27] MEDS ORDERED: Lidocaine 1% PF 5 ML VIAL ONE (13:15)
--- NOTE | 2018-05-27 13:39 | OP ---
DATE OF PROCEDURE: 05/27/2018. SURGEON: Galo Tai M.D. HAND LAUNDERER SURGEON: None. PROCEDURES PERFORMED: Endoscopic retrograde cholangiopancreatography with biliary sphincterotomy and biliary stent placement. INDICATION: Postoperative bile leak. MEDICATIONS: 1. See anesthesia record. 2. Indomethacin 100 mg per rectum, for procedural prophylaxis against pancreatitis. FINDINGS: After discussion of the risks, benefits and alternatives of the procedure, informed consen t was obtained and witnessed. Pre-endoscopic cardiopulmonary examination was satisfactory. DESCRIPTION OF PROCEDURE: Timeout was performed before sedation was achieved. Sedation was achieved with anesthesia assistance in the endoscopy unit. The patient was placed in a prone position on the fluoroscopy table. A Pentax adult side-viewing duodenoscope was advanced through the mouth beyond t he esophagus and stomach and into the second portion of the duodenum. The ampulla was brought into v iew with the endoscope in the short position, the ampulla appeared normal. We initially used a tripl e lumen dome tip sphincterotome with a 0.035 guidewire to try to selectively cannulate the common darrell e duct, cannulation with the sphincterotome was unsuccessful. We therefore exchanged this for a ____ _ cannula. With this instrument, I was able to selectively cannulate the common bile duct, the guide wire was advanced into the right intrahepatic system. At this point, the cannula was exchanged for t he sphincterotome again. A biliary cholangiogram was performed. This demonstrated normal caliber co mmon bile duct with no obvious filling defects. The intrahepatic duct filled and appeared normal. I did not see any filling of cystic duct remnant. However, there was evidence of a low grade bile king k with a small amount of contrast pooling in the region of the gallbladder fossa. I was not able to identify exactly where this leak originated. At this point, we proceeded with biliary sphincterotomy . A generous biliary sphincterotomy was performed. The sphincterotome was then exchanged for a 9-12 mm extraction balloon. Multiple passes were made with the balloon sweeping out the common bile duct with the balloon fully inflated. There were no stones or sludge noted while sweeping the bile duct clear. We then proceeded with stent placement across the ampulla. I placed an 11.5 [place]er x [address] [place]ight plastic dual flanged stent across the ampulla without difficulty. There was free flow of bile and contrast from the stent following the procedure. At this point, the endoscope was completely wi thdrawn and the patient allowed to recover. The patient tolerated the procedure well. There were no immediate post-procedure complications. Postprocedure fluoroscopic images demonstrated no retroperi toneal or subdiaphragmatic free air. IMPRESSION: 1. Low grade bile leak, unable to determine the exact location. Normal common bile duct. 2. Successful biliary sphincterotomy and placement of 11.5 [place]er x 5 cm straight plastic dual flang ed stent across the ampulla. RECOMMENDATIONS: 1. Monitor for potential complications including pancreatitis. 2. Trend LFTs. 3. Plan for repeat ERCP with stent removal in 4-6 weeks.
[2018-05-27] MEDS: diphenhydrAMINE 50 MG/ML VIAL IVP PRN ×2 (15:28→19:45)
[2018-05-28] MEDS: diphenhydrAMINE 50 MG/ML VIAL IVP PRN (04:47)
[2018-05-28] MEDS: D5 1/2 NS w/20 mEq KCL 1,000 ML IV SCH ×2 (04:48→15:25)
[2018-05-28] MEDS ORDERED: Promethazine HCl 25 MG/ML VIAL IM/IV PRN (07:24)
[2018-05-28 07:59] LABS: #Eosinphils 0.1 thou/uL (0.0-0.7); #Monocytes 1.1 thou/uL (0.11-0.59); #Neutrophils 8.8 thou/uL (1.40-6.50); %Basophils 0.3 % (0.0-1.0); %Lymphocytes 16.5 % (21.0-51.0); %Monocytes 9.5 % (0.0-10.0); %Neutrophils 72.8 % (42.0-75.0); Mean Corpuscular Volume 91.3 fL (78.0-98.0); Mean Platelet Volume 7.2 fL (7.4-10.4); Platelet Count 246 thou/uL (130-400); RBC Distribution Width 11.3 % (11.5-14.5); Red Blood Cell (RBC) Count 3.87 mill/uL (4.20-5.40)
[2018-05-28 08:15] LABS: ALT (SGPT) 43 U/L (8-55); AST (SGOT) 15 U/L (5-34); Albumin 3.3 g/dL (3.5-5.0); Alkaline Phosphatase 107 U/L (40-150); Anion Gap 10 mmol/L (10-20); BUN (Urea Nitrogen) 7 mg/dL (7.0-18.7); Bilirubin, Direct 0.7 mg/dL (0.1-0.3); Bilirubin, Total 1.5 mg/dL (0.2-1.2); Calc. Creatinine Clearance 74 mL/min (70-130); Calcium 8.4 mg/dL (7.8-10.44); Carbon Dioxide 22 mmol/L (22-29); Chloride 107 mmol/L (98-107); Estimated GFR-MDRD Greater than 90; Glucose 112 mg/dL (70-105); Potassium 3.9 mmol/L (3.5-5.1); Protein, Total 6.1 g/dL (6.0-8.3); Sodium 135 mmol/L (136-145)
[2018-05-28] MEDS: Famotidine/PF 20 mg/2ml Vial SLOW IVP SCH (08:24)
[2018-05-28] MEDS: Docusate 100 MG CAP PO SCH (08:29)
[2018-05-28] MEDS: Famotidine 20 MG TAB PO SCH (08:29)
[2018-05-28] MEDS ORDERED: Pantoprazole 40 MG VIAL IVP SCH (09:00)
[2018-05-28] MEDS ORDERED: HYDROcodone/Acetaminophen 10/325 mg Tablet PO PRN (10:09)
[2018-05-28] MEDS: HYDROcodone/Acetaminophen 10/325 mg Tablet PO PRN ×2 (11:25→15:46)
[2018-05-28 16:51] VITALS: BP 111/76; TEMP 98.2
--- NOTE | 2018-05-29 11:51 | DIS ---
DISCHARGE DIAGNOSIS: Bile leak from gallbladder fossa. PROCEDURES DURING ADMISSION: HIDA scan, CT scan, ERCP with stent placement. HOSPITAL COURSE: The patient was admitted. CT scan showed some mild fluid collection. LFTs were cl imbing. GI was consulted. HIDA scan showed a bile leak. ERCP showed it was coming from the liver b ed. Stent was placed. She is doing great now. Pain is controlled on p.o. meds. She is tolerating diet. She is discharged to home in good condition on hydrocodone, Phenergan, and she asked for some sleeping pills, some Ambien 10. She will follow up with me in 2 weeks.
== END 2018-05-28 16:51 | disposition home or self-care (01) | DRG 395 ==
LOC: ERS 07:58 → SJJU 12:42 → OBSVTOIN 12:42
PROVIDERS: ADMIT Surgery; ATTEND Surgery
PROC: 0F798DZ Dilation of Common Bile Duct with Intraluminal Device, Via Natural or Artificial Opening Endoscopic (ICD-10-PCS; principal; 2018-05-27)
PROC: BF101ZZ Fluoroscopy of Bile Ducts using Low Osmolar Contrast (ICD-10-PCS; 2018-05-27)
DX: K91.89 Other postprocedural complications and disorders of digestive system (principal); K83.8 Other specified diseases of biliary tract; I34.1 Nonrheumatic mitral (valve) prolapse; R79.89 Other specified abnormal findings of blood chemistry
CPT/HCPCS: 36415; 71045; 74177; 76000; 78226; 80048; 80053; 80076; 81003; 83605; 83690; 84703; 85025; 96361; 96374; 96375; A9537; C9113; J1100; J1170; J1200; J1885; J2001; J2250; J2270; J2274; J2405; J2550; J2704; J2765; J3010; J7050; Q9961; S0028

== ENCOUNTER 2018-08-16 10:51 | Day surgery (SDC) | payer OTHER ==
[2018-08-16] MEDS ORDERED: Iothalamate Meglumine 60% 50 ML VIAL FS ONE (11:27)
[2018-08-16] MEDS ORDERED: Indomethacin 50 MG SUPP ONE (11:27)
[2018-08-16] MEDS ORDERED: Propofol 500 MG/50 ML VIAL ONE (11:39)
[2018-08-16] MEDS ORDERED: Fentanyl 100 MCG/2 ML VIAL ONE (11:39)
[2018-08-16] MEDS ORDERED: Sodium Chloride 0.9% 10 ML ONE (12:58)
[2018-08-16] MEDS ORDERED: PROPOFOL 200 MG/20 ML VIAL ONE (13:21)
[2018-08-16] MEDS ORDERED: Ondansetron PF 4 MG/2 ML Vial ONE (13:21)
--- NOTE | 2018-08-16 13:57 | RAD ---
ERCP 2 VIEWS: HISTORY: Postop cholecystectomy. Bile leak. FINDINGS: These films show limited opacification of a nondilated common bile duct. Limited opacification makes assessment more difficult. At the level of the expected location of the cystic duct, there is a sli ghtly indistinct fluid density collection. If am not sure if this is some type of remnant of the danii t or may indicate a tiny focus of extravasation. No gross extravasation is seen. There is emptying into the duodenum. IMPRESSION: Small slightly irregular fluid density collection which is in the gallbladder bed. This could potent ially indicate a small source of leak. POS: [facility]
--- NOTE | 2018-08-16 19:16 | OP ---
DATE OF PROCEDURE: 08/16/2018 GI ENDOSCOPY NOTE FIELD OPERATIONS FARM MANAGER SURGEON: None. PROCEDURE PERFORMED: Endoscopic retrograde cholangiopancreatography with biliary stent removal. INDICATIONS: A 33-year-old woman with recent history of postoperative bile leak following cholecystectomy. She underwent previous ERCP with biliary sphincterotomy and biliary stent placement on 05/27/2018. Interval LFTs have normalized. She presents today for biliary stent removal. She does have some ongoing abdominal pain, nausea, and diarrhea. MEDICATIONS: 1. Indomethacin 100 mg per rectum, for procedural prophylaxis against pancreatitis. 2. See Anesthesia record. FINDINGS: After discussion of the risks, benefits, and alternatives of the procedure, informed consent was obtained and witnessed. Pre-endoscopic cardiopulmonary examination was satisfactory. Time-out was performed before sedation was achieved. Sedation was achieved with Anesthesia assistance in the endoscopy unit. The patient was placed in a prone position on the fluoroscopy table. A Pentax adult side-viewing duodenoscope was advanced through the mouth and beyond the esophagus and into the stomach. Indirect views of the gastric mucosa all appeared normal. The endoscope was advanced beyond the pylorus and into the second portions of the duodenum. The ampulla was brought into view with the endoscope in the short position. The patient was previously placed. Plastic biliary stent was seemed to be in good position. There was some free flow of bile coming from the stent, but there was also some associated mucosal irritation of ampullary area with the area of mild ulceration associated with the biliary stent. Using a triple lumen dome tip sphincterotome, I was able to cannulate through the biliary stent and perform a biliary cholangiogram. This demonstrated normal appearing nondilated bile duct. There was no evidence of any persistent bile leak that I can appreciate. No evidence of any filling defect. At this point, the sphincterotome was withdrawn and a wire snare was used to grasp the biliary stent and pull it completely out of the biliary tract and it was removed from the mouth. I did reintubate the patient for reexamination of the ampullary area following stent removal. There was some edema and irritation of the ampullary area. The endoscope was then completely withdrawn, suctioning out excess air and fluid and the procedure was completed. The patient tolerated the procedure well. There were no immediate postprocedure complications. IMPRESSION: 1. No evidence of persistent bile leak on cholangiogram. 2. Ampullary irritation and mild ulceration associated with plastic biliary stent. 3. Successful biliary stent removal. RECOMMENDATIONS: 1. Advance diet as tolerated. 2. Continue Nexium. 3. I think it would be worthwhile to try her on cholestyramine 4 g by mouth twice daily, given her postcholecystectomy diarrhea. 4. Clinic followup in 3 to 4 weeks. 5. Follow up with Dr. Mcintosh as previously scheduled. Job ID: [id number]
== END 2018-08-16 13:15 | disposition home or self-care (01) ==
LOC: SDC 10:51
PROVIDERS: ATTEND Internal Medicine
PROC: 0FPB8DZ Removal of Intraluminal Device from Hepatobiliary Duct, Via Natural or Artificial Opening Endoscopic (ICD-10-PCS; principal; 2018-08-16)
DX: Z46.59 Encounter for fitting and adjustment of other gastrointestinal appliance and device (principal); Z90.49 Acquired absence of other specified parts of digestive tract; Z79.2 Long term (current) use of antibiotics
CPT/HCPCS: 74330; J2405; J2704; J3010; Q9961